=== PATIENT | female | born 1965 | race Caucasian/White ===

== ENCOUNTER 2019-10-23 13:02 | Emergency (ER) | payer OTHER ==
[~2019-10-23] VITALS: Ht 172.7 cm; Wt 110.0 kg
[~2019-10-23 13:02] MED LIST: ALBU8HFA PO; ALPR-624 PO; ASPI81TA52 PO; ERGO1TAB30 PO; ESCI10TA PO; MIRA50TA PO; MULT-620 PO; NITR1PAT68 TD; SUMA100T PO; TRAZ-256 PO; VALA500T PO
[2019-10-23 14:40] LABS: CLARITY,URINE CLEAR (Clear); COLOR,URINE YELLOW (Yellow); GLUCOSE, URINE NEGATIVE (Neg); KETONES,URINE NEGATIVE (Neg); LEUKOCYTE ESTERASE ,URINE TRACE (Neg); NITRITES, URINE POSITIVE (Neg); OCCULT BLOOD,URINE MODERATE (Neg); PROTEIN,URINE NEGATIVE (Neg)
[2019-10-23 14:46] LABS: UA COLLECTION TYPE CLN CATCH MIDSTREAM
[2019-10-23 14:50] LABS: BACTERIA,URINE 1+ /HPF (Neg); MUCUS STRANDS FEW /LPF (Neg); SQUAMOUS EPITHELIAL CELL,UR FEW /LPF (FEW)
[2019-10-23 17:21] LABS: BASOPHILS % (AUTO) 0.2 % (0-1); EOSINOPHILS # (AUTO) 0.1 X10'3 (0-0.9); EOSINOPHILS % (AUTO) 1.1 % (0-6); HEMATOCRIT 40.6 % (35.0-45.0); HEMOGLOBIN 13.6 g/dl (12.0-16.0); LYMPHOCYTES # (AUTO) 1.5 X10'3 (1.1-4.8); LYMPHOCYTES % (AUTO) 18.2 % (21-51); MEAN CORPUSCULAR HEMOGLOBIN 32.7 PG (27.0-31.0); MEAN CORPUSCULAR HGB CONC 33.5 g/dL (33.0-36.5); MEAN CORPUSCULAR VOLUME 97.5 FL (78-98); MEAN PLATELET VOLUME 8.5 FL (7.4-10.4); MONOCYTES # (AUTO) 0.5 X10'3 (0-0.9); MONOCYTES % (AUTO) 5.7 % (2-12); NEUTROPHILS % (AUTO) 74.8 % (42-75); PLATELET COUNT 227 X10'3 (140-440); RED BLOOD COUNT 4.16 X10'6 (4.20-5.60); RED CELL DISTRIBUTION WIDTH 13.1 % (11.5-14.5)
[2019-10-23 17:31] LABS: ALANINE AMINOTRANSFERASE 18 U/L (12-78); ALBUMIN 3.4 G/DL (3.4-5.0); ALBUMIN/GLOBULIN RATIO 0.9 (1.1-1.5); ALKALINE PHOSPHATASE 71 IU/L (46-116); ANION GAP 9 (8-16); ASPARTATE AMINO TRANSFERASE 16 U/L (10-37); BILIRUBIN,TOTAL 0.5 MG/DL (0.1-1.0); BLOOD UREA NITROGEN 13 MG/DL (7-18); C-REACTIVE PROTEIN 6.63 MG/DL (0.0-0.5); CALCIUM 9.1 MG/DL (8.5-10.1); CHLORIDE 105 MMOL/L (99-107); CREATININE 0.93 MG/DL (0.40-0.90); GLUCOSE 100 MG/DL (70-104); POTASSIUM 3.9 MMOL/L (3.5-5.1); SODIUM 143 MMOL/L (135-145); TOTAL CARBON DIOXIDE 29.4 MMOL/L (24-32); eGFR 63 ML/MIN
[2019-10-23] MEDS ORDERED: CefTRIAXone 1000mg IM Kit (w/lidocaine diluent) IM ONE (18:40)
[2019-10-23] MEDS ORDERED: NYST1000 PO (18:50)
[2019-10-23] MEDS ORDERED: OXYB5TAB16 PO (18:50)
[2019-10-23] MEDS ORDERED: CEPH-572 PO (18:50)
[2019-10-23 18:57] VITALS: BP 144/76
== END 2019-10-23 19:02 | disposition home or self-care (01) ==
LOC: ER 13:03
DX: N39.0 Urinary tract infection, site not specified (principal); B37.9 Candidiasis, unspecified; M54.5 Low back pain; G43.909 Migraine, unspecified, not intractable, without status migrainosus; J45.909 Unspecified asthma, uncomplicated; Z98.890 Other specified postprocedural states; Z88.8 Allergy status to other drugs, medicaments and biological substances; Z79.82 Long term (current) use of aspirin; Z79.899 Other long term (current) drug therapy
CPT/HCPCS: 36415; 80053; 81001; 85025; 85651; 86140; 87088; 96372; 99283; J0696

== ENCOUNTER 2020-01-09 08:33 | Emergency (ER) | payer OTHER ==
[~2020-01-09] VITALS: Ht 172.7 cm; Wt 110.2 kg
[~2020-01-09 08:33] MED LIST changes: +OXYB5TAB16 PO
[2020-01-09 09:21] LABS: BASOPHILS % (AUTO) 0.6 % (0-1); EOSINOPHILS # (AUTO) 0.1 X10'3 (0-0.9); EOSINOPHILS % (AUTO) 1.8 % (0-6); HEMATOCRIT 40.6 % (35.0-45.0); HEMOGLOBIN 13.7 g/dl (12.0-16.0); LYMPHOCYTES # (AUTO) 0.9 X10'3 (1.1-4.8); LYMPHOCYTES % (AUTO) 21.2 % (21-51); MEAN CORPUSCULAR HEMOGLOBIN 32.4 PG (27.0-31.0); MEAN CORPUSCULAR HGB CONC 33.8 g/dL (33.0-36.5); MEAN PLATELET VOLUME 8.2 FL (7.4-10.4); MONOCYTES # (AUTO) 0.2 X10'3 (0-0.9); MONOCYTES % (AUTO) 5.1 % (2-12); NEUTROPHILS # (AUTO) 3.2 X10'3 (1.8-7.7); NEUTROPHILS % (AUTO) 71.3 % (42-75); PLATELET COUNT 203 X10'3 (140-440); RED BLOOD COUNT 4.23 X10'6 (4.20-5.60); RED CELL DISTRIBUTION WIDTH 13.3 % (11.5-14.5); WHITE BLOOD COUNT 4.4 X10'3 (4.5-11.0)
[2020-01-09 09:39] LABS: ALANINE AMINOTRANSFERASE 16 U/L (12-78); ALBUMIN 3.5 G/DL (3.4-5.0); ALBUMIN/GLOBULIN RATIO 1.1 (1.1-1.5); ALKALINE PHOSPHATASE 72 IU/L (46-116); ANION GAP 3 (8-16); ASPARTATE AMINO TRANSFERASE 12 U/L (10-37); BILIRUBIN,TOTAL 0.4 MG/DL (0.1-1.0); BLOOD UREA NITROGEN 23 MG/DL (7-18); BUN/CREATININE RATIO 24.5 (6.6-38.0); CALCIUM 8.8 MG/DL (8.5-10.1); CHLORIDE 106 MMOL/L (99-107); CREATININE 0.94 MG/DL (0.40-0.90); GLUCOSE 89 MG/DL (70-104); POTASSIUM 3.8 MMOL/L (3.5-5.1); SODIUM 141 MMOL/L (135-145); TOTAL CARBON DIOXIDE 32.3 MMOL/L (24-32); TOTAL PROTEIN 6.8 G/DL (6.4-8.2); eGFR 62 ML/MIN
[2020-01-09] MEDS ORDERED: mag hydrox/Alum hydrox/simeth 30ml oral suspension PO ONE (09:50)
[2020-01-09] MEDS ORDERED: LIDOcaine Viscous 15ml cup MM ONE (09:50)
[2020-01-09] MEDS ORDERED: sucralfate 1 gm tablet PO ONE (09:50)
--- NOTE | 2020-01-09 10:24 | NUR ---
pt reports "feeling much netter" rachael fox notified.
[2020-01-09] MEDS ORDERED: PANT-47 PO (11:50)
[2020-01-09 12:28] VITALS: BP 125/71
== END 2020-01-09 12:30 | disposition home or self-care (01) ==
LOC: ER 08:33
DX: R07.89 Other chest pain (principal); R07.2 Precordial pain; G43.909 Migraine, unspecified, not intractable, without status migrainosus; E78.00 Pure hypercholesterolemia, unspecified; J45.909 Unspecified asthma, uncomplicated; F41.9 Anxiety disorder, unspecified; F31.9 Bipolar disorder, unspecified; K21.9 Gastro-esophageal reflux disease without esophagitis; Z98.890 Other specified postprocedural states; Z88.8 Allergy status to other drugs, medicaments and biological substances; Z79.82 Long term (current) use of aspirin; Z79.2 Long term (current) use of antibiotics; Z79.899 Other long term (current) drug therapy
CPT/HCPCS: 36415; 71045; 80053; 83880; 84484; 85025; 93005; 99285

== ENCOUNTER 2020-02-21 13:59 | Emergency (ER) | payer OTHER ==
[~2020-02-21] VITALS: Ht 172.7 cm; Wt 110.0 kg
[~2020-02-21 13:59] MED LIST changes: +PANT-47 PO
[2020-02-21] MEDS ORDERED: cyclobenzaprine 10mg tablet PO ONE (15:20)
[2020-02-21] MEDS ORDERED: ketorolac tromethamine 15mg/ml inj. IM ONE (15:20)
[2020-02-21] MEDS ORDERED: CYCL-1 PO (15:21)
[2020-02-21] MEDS ORDERED: IBUP-1984 PO (15:21)
[2020-02-21 16:03] VITALS: BP 127/87
== END 2020-02-21 16:05 | disposition home or self-care (01) ==
LOC: ER 14:00
DX: M25.532 Pain in left wrist (principal); M79.602 Pain in left arm; M79.645 Pain in left finger(s); G43.909 Migraine, unspecified, not intractable, without status migrainosus; E78.00 Pure hypercholesterolemia, unspecified; J45.909 Unspecified asthma, uncomplicated; F41.9 Anxiety disorder, unspecified; F31.9 Bipolar disorder, unspecified; Z98.890 Other specified postprocedural states; Z88.8 Allergy status to other drugs, medicaments and biological substances; Z88.5 Allergy status to narcotic agent; Z79.82 Long term (current) use of aspirin; Z79.899 Other long term (current) drug therapy; V87.7XXA Person injured in collision between other specified motor vehicles (traffic), initial encounter; Y93.89 Activity, other specified; Y92.488 Other paved roadways as the place of occurrence of the external cause; Y99.8 Other external cause status
CPT/HCPCS: 29125; 73110; 73140; 96372; 99284; J1885

== ENCOUNTER 2020-07-20 12:44 | Emergency (ER) | payer OTHER ==
[~2020-07-20] VITALS: Ht 172.7 cm; Wt 88.9 kg
[~2020-07-20 12:44] MED LIST changes: +CYCL-1 PO
[2020-07-20 15:55] VITALS: BP 137/74
[2020-07-20] MEDS ORDERED: DICL100G15 TOP (16:14)
== END 2020-07-20 16:25 | disposition home or self-care (01) ==
LOC: ER 12:45
DX: S86.912A Strain of unspecified muscle(s) and tendon(s) at lower leg level, left leg, initial encounter (principal); G43.909 Migraine, unspecified, not intractable, without status migrainosus; E78.00 Pure hypercholesterolemia, unspecified; J45.909 Unspecified asthma, uncomplicated; Z98.890 Other specified postprocedural states; Z88.8 Allergy status to other drugs, medicaments and biological substances; Z79.82 Long term (current) use of aspirin; Z79.899 Other long term (current) drug therapy; Z87.828 Personal history of other (healed) physical injury and trauma; X50.1XXA Overexertion from prolonged static or awkward postures, initial encounter; Y93.89 Activity, other specified; Y92.89 Other specified places as the place of occurrence of the external cause; Y99.8 Other external cause status
CPT/HCPCS: 73564; 93971; 99284

== ENCOUNTER → 2021-01-03 | Emergency (ER) | payer OTHER ==
[~2021-01-03] VITALS: Ht 172.7 cm; Wt 104.5 kg
[~2021-01-03] MED LIST changes: +DICL100G15 TOP; +morphine 10mg/ml inj. IM ONE
[2021-01-04 00:39] VITALS: BP 116/65
== END | disposition home or self-care (01) ==
LOC: ER 19:49
DX: L76.22 Postprocedural hemorrhage of skin and subcutaneous tissue following other procedure (principal); M25.562 Pain in left knee; G43.909 Migraine, unspecified, not intractable, without status migrainosus; E78.00 Pure hypercholesterolemia, unspecified; J45.909 Unspecified asthma, uncomplicated; F41.9 Anxiety disorder, unspecified; F31.9 Bipolar disorder, unspecified; Z98.890 Other specified postprocedural states; Z88.8 Allergy status to other drugs, medicaments and biological substances; Z79.82 Long term (current) use of aspirin; Z79.899 Other long term (current) drug therapy
CPT/HCPCS: 96372; 99283; J2270

== ENCOUNTER 2021-06-19 12:11 | Inpatient (IN) | payer OTHER ==
[2021-06-12 16:27] LABS: BASOPHILS % (AUTO) 0.4 % (0-1); EOSINOPHILS # (AUTO) 0.2 X10'3 (0-0.9); EOSINOPHILS % (AUTO) 3.5 % (0-6); LYMPHOCYTES # (AUTO) 1.4 X10'3 (1.1-4.8); LYMPHOCYTES % (AUTO) 24.3 % (21-51); MEAN CORPUSCULAR HEMOGLOBIN 30.9 PG (27.0-31.0); MEAN CORPUSCULAR VOLUME 90.9 FL (78-98); MEAN PLATELET VOLUME 8.5 FL (7.4-10.4); MONOCYTES # (AUTO) 0.3 X10'3 (0-0.9); MONOCYTES % (AUTO) 4.6 % (2-12); NEUTROPHILS # (AUTO) 3.9 X10'3 (1.8-7.7); NEUTROPHILS % (AUTO) 67.2 % (42-75); PRE OP HEMATOCRIT 41.1 % (35.0-45.0); PRE OP PLATELET COUNT 220 X10'3 (140-440); RED BLOOD COUNT 4.52 X10'6 (4.20-5.60); RED CELL DISTRIBUTION WIDTH 13.1 % (11.5-14.5)
[2021-06-12 16:28] LABS: PRE OP PROTIME 10.7 SECONDS (9.0-12.0)
[2021-06-12 16:43] LABS: ALBUMIN 3.7 G/DL (3.4-5.0); ALBUMIN/GLOBULIN RATIO 1.2 (1.1-1.5); ALKALINE PHOSPHATASE 85 IU/L (46-116); BLOOD UREA NITROGEN 20 MG/DL (7-18); BUN/CREATININE RATIO 26.3 (6.6-38.0); CALCIUM 9.1 MG/DL (8.5-10.1); CHLORIDE 106 MMOL/L (99-107); CREATININE 0.76 MG/DL (0.40-0.90); PRE OP ALT 20 U/L (30-65); PRE OP ANION GAP 10 (8-16); PRE OP AST 16 U/L (10-37); PRE OP BILIRUB, TOTAL 0.4 MG/DL (0.0-1.0); PRE OP GLUCOSE 92 MG/DL (70-104); PRE OP POTASSIUM 3.4 MMOL/L (3.4-5.1); PRE OP SODIUM 145 MMOL/L (135-145); TOTAL CARBON DIOXIDE 28.6 MMOL/L (24-32); TOTAL PROTEIN 6.7 G/DL (6.4-8.2); eGFR 78 ML/MIN
[~2021-06-19] VITALS: Ht 172.7 cm; Wt 108.4 kg
[2021-06-19] VITALS (8 sets, daily range): BP systolic 133–153; BP diastolic 69–85
[~2021-06-19 12:11] MED LIST changes: -ALBU8HFA PO; -ALPR-624 PO; -ASPI81TA52 PO; +ATOM60CA PO; -CYCL-1 PO; -DICL100G15 TOP; -ESCI10TA PO; +FLUV25TA14 PO; +LORA-269 PO; -MIRA50TA PO; +MULT-1085 PO; -MULT-620 PO; -NITR1PAT68 TD; +OXCA150T14 PO; -OXYB5TAB16 PO; -PANT-47 PO; -SUMA100T PO; +cefazolin/dext.iso 2gm/50ml IV ONE; +famotidine 20mg tablet PO ONE; -morphine 10mg/ml inj. IM ONE; +ringers solution, lacted 1,000 ML IV SCH
[2021-06-19] MEDS ORDERED: meperidine/PF 25mg/ml syringe IV PRN (14:35)
[2021-06-19] MEDS ORDERED: proCHLORperazine 10 MG/2 ml inj IV PRN (14:35)
[2021-06-19] MEDS ORDERED: ketorolac trometh. 30mg/ml inj. IV ONE (14:35)
[2021-06-19] MEDS ORDERED: labetalol 20mg/4ml (5mg/ml) syringe IV PRN (14:35)
[2021-06-19] MEDS ORDERED: acetaminophen 1,000mg/100ml IV 100 ML IV PRN (14:35)
[2021-06-19] MEDS ORDERED: ondansetron/PF 4mg/2ml inj IV PRN (14:35)
[2021-06-19] MEDS ORDERED: hydrALAZINE 20mg/ml inj. IV PRN (14:35)
[2021-06-19] MEDS ORDERED: fentaNYL/PF 50MCG/1 ML 2ML syringe IV PRN ×2 (14:35)
[2021-06-19] MEDS ORDERED: ringers solution, lacted 1,000 ML IV SCH (14:35)
[2021-06-19] MEDS ORDERED: cloNIDine hcl/PF 100mcg/ml inj ONE (14:43)
[2021-06-19] MEDS ORDERED: sevoflurane 250ml liquid IH ONE (15:17)
[2021-06-19] MEDS ORDERED: fentaNYL /PF 50mcg/ml 5ml ampule ONE ×2 (15:24→17:46)
[2021-06-19] MEDS ORDERED: midazolam 1 mg/ML 2ml injection ONE (15:24)
[2021-06-19] MEDS ORDERED: BUPIVAcaine 0.5% inj/PF 30 ML ONE (15:55)
[2021-06-19] MEDS ORDERED: LIDOcaine 2% (20mg/ml) 5ml vial ONE (16:07)
[2021-06-19] MEDS ORDERED: ondansetron/PF 4mg/2ml inj ONE (16:07)
[2021-06-19] MEDS ORDERED: dexamethasone sod phosphate 4mg/ml inj. ONE (16:07)
[2021-06-19] MEDS ORDERED: propofol inj 20 ML IV ONE (16:07)
[2021-06-19] MEDS ORDERED: LIDOcaine 1%/PF 5ML 10 MG/ML VIAL ONE (16:07)
[2021-06-19] MEDS ORDERED: ROPIVAcaine 0.5% (5mg/ml) 30ml vial ONE (16:07)
[2021-06-19] MEDS ORDERED: ePHEDrine 50MG/ML INJ. ONE (16:22)
[2021-06-19] MEDS ORDERED: 0.9 % SODIUM CHLORIDE 10 ML VIAL ONE (16:22)
[2021-06-19] MEDS ORDERED: BUPIVAcaine 0.5% inj/PF 30 ml vial IJ ONE (17:00)
--- NOTE | 2021-06-19 17:51 | NUR ---
Received from OR via SURGICAL BED, accompanied by Anesthesiologist WINIFRED and report given by Anesthesijacobo. Addendum: 06/19/21 at 1816 by Dominic Coleman RN, RN Amended: Links added.
[2021-06-19] MEDS ORDERED: ceFAZolin/D5W- 1GM premix 50 ML IV ONE (18:00)
--- NOTE | 2021-06-19 19:01 | NUR ---
ALL DISCHARGE CRITERIA HAS BEEN MET. VSS, PAIN AT A TOLERABLE LEVEL, VOIDING AND ABLE TO SAFELY AMBULATE AND TRANSFER SELF. IV TAKEN OUT WITHOUT ANY COMPLICATIONS. ALL DISCHARGE INSTRUCTIONS COVERED WITH PATIENT AND ALL QUESTIONS ANSWERED. PATIENT TAKEN OUT VIA WHEELCHAIR TO PERSONAL VEHICLE WHERE FAMILY/FRIEND DROVE PATIENT HOME. Addendum: 06/19/21 at 1923 by Dominic Coleman RN, RN Amended: Links added.
[2021-06-20] MEDS ORDERED: LACT1CAP65 PO (15:27)
[2021-06-20] MEDS ORDERED: CLIN-97 PO (15:27)
[2021-06-20] MEDS ORDERED: CEPH500C2 PO (15:27)
== END 2021-06-19 19:01 | disposition home or self-care (01) | DRG 493 ==
LOC: PAS IN 12:11 → EDSTATUS 14:30
PROVIDERS: ADMIT Orthopaedic Surgery; ATTEND Orthopaedic Surgery
PROC: 0QSH04Z Reposition Left Tibia with Internal Fixation Device, Open Approach (ICD-10-PCS; principal; 2021-06-19 15:17)
DX: S82.252A Displaced comminuted fracture of shaft of left tibia, initial encounter for closed fracture (principal); T84.117A Breakdown (mechanical) of internal fixation device of bone of left lower leg, initial encounter; Z20.822 Contact with and (suspected) exposure to COVID-19; X58.XXXA Exposure to other specified factors, initial encounter; Y83.1 Surgical operation with implant of artificial internal device as the cause of abnormal reaction of the patient, or of later complication, without mention of misadventure at the time of the procedure; Y93.89 Activity, other specified; Y92.89 Other specified places as the place of occurrence of the external cause; Y99.8 Other external cause status
CPT/HCPCS: 36415; 73590; 76000; 80053; 82948; 85025; 85610; 85730; 87081; 93005; A4618; A6222; A6250; A6449; A7000; C1713; J0690; J0735; J1100; J2250; J2405; J2704; J2795; J3010; J3370; J3490; J7120; S0020; U0003; U0005